=== PATIENT | male | born 1945 | race African-American/Black ===

== ENCOUNTER 2025-07-06 12:44 | Emergency (ER) | payer MEDICARE ==
[~2025-07-06] VITALS: Ht 167.6 cm; Wt 73.4 kg
[2025-07-06 12:51] VITALS: TEMP 36.9; O2SAT 99
[2025-07-06 13:43] LABS: BASOPHILS % 1.1 % (0.0-2.0); EOSINOPHILS % 3.4 % (0.0-5.0); HEMATOCRIT. 34.1 % (42.0-52.0); HEMOGLOBIN. 11.8 g/dL (14.0-18.0); LYMPHOCYTES % 41.7 % (20.0-50.0); MEAN PLATELET VOLUME 7.7 fl (7.4-10.4); MONOCYTES % 8.0 % (2.0-8.0); NEUTROPHILS % 45.8 % (40.0-76.0); PLATELET 337 x1000/uL (130-400); RED BLOOD CELL COUNT 3.85 mill/uL (4.7-6.1); RED CELL DISTRIBUTION WIDTH 14.5 % (11.6-14.6)
[2025-07-06 14:09] LABS: CREATININE 0.9 mg/dL (0.6-1.3); PROTEIN TOTAL 6.9 g/dL (6.0-8.3); UREA NITROGEN BLOOD 11 mg/dL (9-23)
[2025-07-06 14:11] LABS: ASPARTATE AMINOTRANSFERASE 15 IU/L (<34); BILIRUBIN TOTAL 1.5 mg/dL (0.1-1.0)
[2025-07-06] MEDS: LIDOCAINE HCL 1% 20ML VIAL INFIL ONE (16:02)
[2025-07-06] MEDS ORDERED: TOPUD MT (16:48)
[2025-07-06] MEDS ORDERED: IBUP-1523 MT (16:48)
[2025-07-06 16:57] VITALS: BP 160/71; PULSE 57; RESP 16; O2SAT 100
[2025-07-06 17:54] LABS: BODY FLUID RBC 10950 /cu mm (0-2000); BODY FLUID WBC 81 /cu mm (0-200)
[2025-07-06 17:58] LABS: BODY FLUID MONOCYTES 46 %
== END 2025-07-06 16:59 | disposition home or self-care (01) ==
LOC: ER 12:44
DX: M24.521 Contracture, right elbow (principal); M19.021 Primary osteoarthritis, right elbow; I10 Essential (primary) hypertension
CPT/HCPCS: 20610; 36415; 80053; 84550; 85025; 89060; 99283